=== PATIENT | female | born 1980 | race Asian ===

== ENCOUNTER 2018-10-17 08:29 | Emergency (ER) | payer BC, MEDICAID ==
[~2018-10-17] VITALS: Ht 157.5 cm; Wt 72.0 kg
[~2018-10-17 08:29] MED LIST: CYCL10TA7 PO; IBUP800T48 PO; MUPI22OI2 TOP
[2018-10-17 08:30] VITALS: Ht 157.5 cm; Wt 72.0 kg
== END 2018-10-17 09:21 | disposition home or self-care (01) ==
LOC: FTE 08:29
DX: T24.212A Burn of second degree of left thigh, initial encounter (principal); W40.8XXA Explosion of other specified explosive materials, initial encounter; Y92.810 Car as the place of occurrence of the external cause
CPT/HCPCS: 99283